=== PATIENT | female | born 1975 | race Caucasian/White ===

== ENCOUNTER 2017-03-27 05:57 | Day surgery (SDC) | payer BC, OTHER ==
[~2017-03-27] VITALS: Ht 167.6 cm; Wt 64.6 kg
--- NOTE | ~2017-03-27 | OR ---
PATIENT'S NAME: DARIEN MARTINEZ [facility] AGE: 41 [address] ROOM: [address] [address] [place] [facility] [place] DATE: 03/27/2017 OR/Procedure Report DISCHARGE DATE: FAMILY PHYSICIAN: Zulay Martin APRN ATTENDING PHYSICIAN: CHADWICK GREEN SURGEON: Chadwick Green MD EQUIPMENT MECHANIC: None. DATE OF PROCEDURE: 03/27/2017 PREOPERATIVE DIAGNOSIS: Stress urinary incontinence. POSTOPERATIVE DIAGNOSIS: Stress urinary incontinence. OPERATIONS/PROCEDURES PERFORMED: 1. Pubovaginal sling utilizing the TVT retropubic system ([employer]vantage Fit [employer]). 2. Cystourethroscopy. ANESTHESIA: General. INDICATIONS FOR PROCEDURE: The patient is a pleasant 41-year-old female with stress urinary incontinence. The patient was explained the risks, benefits, and alternatives to above procedure and wished to proceed and consented freely. DESCRIPTION OF OPERATION: The patient was brought back to the operating room, where she was placed on the OR table in the supine position. A surgical time- out was called where patient identification, surgical site, and procedure was then verified. We also did verify that the patient received an IV Levaquin antibiotic within an hour prior to beginning the procedure. The patient had underwent successful administration of general endotracheal anesthesia. The patient was then converted to the dorsal lithotomy position and her genital area was then prepped and draped in the usual sterile fashion. A Guallpa catheter was placed per urethra and a Kevyn retractor in the vagina posteriorly. Local anesthetic was injected into the anterior vaginal wall as well as laterally. I also injected local anesthetic in the suprapubic area. A midline incision was then made below the urethral meatus. Metzenbaum scissors were used to create a tissue plane between the bladder and the vaginal wall and urethra. Once the tissue plane was developed using a push spread technique, I dissected up to the undersurface of the ischiopubic rami. I then used a catheter guide to displace the bladder neck and the urethra. The TVT trocar was then used to perforate the endopelvic fascia and then was carefully passed through the space of Retzius and perforating the rectus sheath and muscle. Again, this was passed from the bottom to top approach. A small incision was made on the right side where the needle tip was exposed PATIENT'S NAME: DARIEN MARTINEZ [facility] AGE: 41 Y [address] ROOM: [address] [place], [place] [address] LOCATION: [facility] [place] DATE: 03/27/2017 OR/Procedure Report DISCHARGE DATE: FAMILY PHYSICIAN: Zulay Martin APRN ATTENDING PHYSICIAN: CHADWICK GREEN through the incision. A hemostat was then placed on the sheath to temporarily secure it extra-abdominally. The trocar was then removed leaving the mesh and the sheath in place. Identical passage of the trocar was performed on the left-hand side in the same fashion. The Guallpa catheter was then removed and cystoscopy was performed using the 70-degree lens and the bladder was distended to approximately 250 mL. The bladder did appear to be normal with her ureteral orifices to be in their normal orthotopic location and no evidence of any bladder tumors, cellules, or diverticula. There was no evidence of perforation of the bladder and both trocars gave minimal indentation to the bladder. I then adjusted the tension on the sling by pulling the trocars upward, then removed the surrounding plastic sheath and trocar, and the patient did not have any incontinence at this point. I then cut the mesh and flushed with the skin. The incision sites were irrigated with antibiotic irrigation and inspected for hemostasis, which was excellent. The vaginal wall was then closed with a running 4-0 Vicryl suture. The skin puncture sites were closed with a 4-0 Monocryl suture in a subcuticular fashion and covered with Dermabond. The patient did tolerate the procedure well. The patient was then taken out of the lithotomy position where she was then awoken from general anesthesia, extubated, and transferred to the recovery bed and transported to the recovery room in good condition. COMPLICATIONS: None. ESTIMATED BLOOD LOSS: Less than 25 mL. DRAINS: None. SPECIMENS: None. FOLLOWUP PLAN: We will plan to have the patient monitored in the recovery room where she will be given a trial of void. If she passes a trial of void, we will then have her follow up as an outpatient in 6 weeks. MD HEBER [facility]TH/sonya /[id number] CC: Zulay Martin APRN d: 03/27/17 1111 t: 04/02/17 1026, OPERATIVE SUMMARY
[~2017-03-27 05:57] MED LIST: ALLERGY RELIEF10 M3 PO; THERA-VITE W/ B1 TAB PO
[2017-03-27] MEDS ORDERED: NORCO 5-325 TA1 EACH PO (09:42)
[2017-03-27] MEDS ORDERED: LEVAQUIN500 MG PO (09:43)
== END 2017-03-27 15:05 ==
LOC: GSDC 05:57 → GMSU 05:57 → GPOC 07:00 → GSDC 15:05
PROC: 0TSD0ZZ Reposition Urethra, Open Approach (ICD-10-PCS; principal; 2017-03-27)
DX: N39.3 Stress incontinence (female) (male) (principal); Z79.899 Other long term (current) drug therapy
CPT/HCPCS: J1100; J1956; J2001; J2250; J2405; J7120